=== PATIENT | female | born 1955 | race Caucasian/White ===

== ENCOUNTER → 2022-05-16 | Outpatient (CLI) | payer MEDICARE ==
[~2022-05-16] MED LIST: ALPR1; ESTR.625; HYDACE5; OXYACE5T PO
== END ==
LOC: LAB SHORT 15:51 → LAB 15:51
PROVIDERS: Family Medicine
DX: M19.90 Unspecified osteoarthritis, unspecified site (principal)
CPT/HCPCS: 85651; 86140; 86430